=== PATIENT | male | born 1975 | race Caucasian/White ===

== ENCOUNTER → 2017-04-23 | Outpatient (CLI) | payer OTHER, MEDICARE ==
[~2017-04-23] MED LIST: ATIVAN PO; ATIVAN0.5 M1 PO; CARDIZEM CD PO; DILTIAZEM 24HR300 M1 PO; FISH OIL 1,001000 M1 PO; FLEXERIL10 M1 PO; IBUPROFEN800 MG PO; KCL PO; LIPITOR PO; PAXIL PO; SEROQUEL PO; SEROQUEL25 MG PO; ZITHROMAX PO; ZOCOR PO
--- NOTE | ~2017-04-23 | XA30 ---
[facility] A Service of [facility] & [facility] RADIOLOGY TEXT RESULTS PATIENT: REBECCA KNOWLES LOCATION: [facility] : 75 UNIT #: [id number] AGE: [address]: Brijesh Nuno MD SEX: M ORDER DR: [id number] [facility] [place] [facility]. [place], [place] [address] [id number] O MR#: [id number] Acc #: [id number] NAME: REBECCA KNOWLES : 1975 SEX: M STUDY DATE/TIME: 04/23/2017 12:32 [facility] RO[facility]: STUDY DESCRIPTION: XA Arthrocentesis Major Joint Attending Physician: Brijesh Nuno M.D. Referring Physician: Brijesh Nuno M.D. Ordering Physician: Brijesh Nuno M.D. Primary Care Physician: Sha Dixon MEDICAL IMAGING REPORT This report is preliminary unless electronic signature is present EXAM Fluoroscopic guided left hip joint injection with steroid and local anesthetic INDICATIONS Left hip pain. Osteoarthritis. FLUOROSCOPY TIME 0.5 minutes. One fluoroscopic image was taken. PROCEDURE Risks, benefits and alternatives of the procedure were discussed the patient and informed consent was obtained. In the procedure room, a time-out was performed confirming correct patient and procedure. All elements of maximum sterile-barrier technique utilized according to guidelines appropriate for the procedure. TECHNIQUE/FINDINGS The skin overlying the left hip was prepped and draped in the usual sterile fashion. 1% lidocaine utilized to anesthetize the skin and underlying subcutaneous tissues. Next under fluoroscopic guidance, a 22-gauge needle was advanced into the hip joint space. A small amount of contrast was injected confirming satisfactory position. Next, 2 mL of 40 mg of Depo-Medrol followed by 3 mL of bupivacaine was injected into the hip joint space. Needle was removed and a sterile dressing was applied. No immediate complications. IMPRESSION Technically successful fluoroscopic-guided joint injection with steroid and local anesthetic. Dictated by... Ben Howard M.D. [facility] A Service of [facility] & [facility] RADIOLOGY TEXT RESULTS PATIENT: REBECCA KNOWLES LOCATION: [facility] : 75 UNIT #: [id number] AGE: [address]: Brijesh Nuno MD SEX: M ORDER DR: THIS IS AN ELECTRONICALLY VERIFIED REPORT Ben Howard M.D. at 04/24/2017 10:06 AM ARS/to TD: 04/23/2017 22:34 JOB #: [id number] MEDICAL IMAGING REPORT Page 1 of 1 COPY
== END | disposition home or self-care (01) ==
LOC: CIVR 12:05
PROC: 3E0U33Z Introduction of Anti-inflammatory into Joints, Percutaneous Approach (ICD-10-PCS; principal; 2017-04-23)
PROC: 3E0U3BZ Introduction of Anesthetic Agent into Joints, Percutaneous Approach (ICD-10-PCS; 2017-04-23)
DX: M16.12 Unilateral primary osteoarthritis, left hip (principal)
CPT/HCPCS: 77002; J1030; Q9966